=== PATIENT | female | born 2000 | race Caucasian/White ===

== ENCOUNTER 2021-08-14 11:02 | Inpatient (IN) | payer BC ==
[2021-08-20 05:39] VITALS: BMI 36.6
[2021-08-20] MEDS ORDERED: Lidocaine 1% (PF) 30 ML VIAL SC PRN (06:05)
[2021-08-20] MEDS ORDERED: Carboprost 250 MCG/ML AMP IM PRN (06:05)
[2021-08-20] MEDS ORDERED: hydrALAZINE 20 MG/ML VIAL SLOW IVP PRN (06:05)
[2021-08-20] MEDS ORDERED: Methylergonovine 0.2 MG/ML VIAL IM PRN (06:05)
[2021-08-20] MEDS ORDERED: Ondansetron PF 4 MG/2 ML Vial IVP PRN (06:05)
[2021-08-20] MEDS ORDERED: Misoprostol 200 MCG TAB PR PRN (06:05)
[2021-08-20] MEDS ORDERED: Penicillin G Potassium 5 MILL.UNITS in Sodium Chloride 0.9% 100 ML IVPB SCH (06:15)
[2021-08-20] MEDS ORDERED: NS w/ Oxytocin 30 units 500 ML IV SCH ×2 (06:15)
[2021-08-20 06:39] LABS: Hemoglobin 9.9 g/dL (12.0-15.5); Mean Corpuscular HGB CONC 30.1 g/dL (32.0-36.0); Mean Corpuscular Hemoglobin 25.1 pg (27.0-33.0); Mean Corpuscular Volume 83.3 fl (81.6-98.3); Mean Platelet Volume 11.4 fl (7.4-10.4); Platelet Count 211 10x3/uL (150-450); RBC Distribution Width 14.5 % (11.5-14.5); Red Blood Cell (RBC) Count 3.95 10x6/uL (3.90-5.03); White Blood Cell (WBC) Count 7.9 10x3/uL (3.5-10.5)
[2021-08-20] MEDS: Misoprostol 100 MCG TAB VAG SCH ×3 (07:20→21:43)
[2021-08-20 07:25] LABS: Hep B Surf Ag Non-Reactive S/CO (NonReactive)
[2021-08-20 07:26] LABS: HBSAg Index 0.18 S/CO (0-0.99); Syphilis Antibody Nonreactive (Nonreactive); Syphilis Antibody Index 0.04 S/CO (<1.00 Non-Reactive)
[2021-08-20] MEDS ORDERED: ePHEDrine Sulfate 50 MG/10 ML VIAL ONE (08:00)
[2021-08-20] MEDS ORDERED: Terbutaline Sulfate 1 MG/ML VIAL ONE (08:00)
[2021-08-20] MEDS ORDERED: Lidocaine 2% PF 5 ML VIAL ONE (08:00)
[2021-08-20] MEDS ORDERED: Bupivacaine 0.25% HCL 30 ML VIAL ONE (08:00)
[2021-08-20] MEDS: Penicillin G 2.5 MILL.units 2.5 MILL.UNITS in Premix Bag 1 BAG IVPB SCH ×4 (10:00→22:45)
[2021-08-20 10:01] LABS: SARS-CoV-2 NAA Rapid Test Not Detected (NotDetected)
[2021-08-20] MEDS ORDERED: Penicillin G Potassium 5 MILL.UNITS VIAL ONE (17:55)
[2021-08-20] MEDS: Lactated Ringer's 1,000 ML IV SCH ×2 (21:42→22:45)
[2021-08-21] MEDS: Misoprostol 100 MCG TAB VAG SCH ×2 (02:23→03:15)
[2021-08-21] MEDS: Lactated Ringer's 1,000 ML IV SCH ×4 (03:14→17:20)
[2021-08-21] MEDS: Penicillin G 2.5 MILL.units 2.5 MILL.UNITS in Premix Bag 1 BAG IVPB SCH ×4 (03:15→16:35)
[2021-08-21] MEDS ORDERED: Fentanyl 2 mcg/Bup 0.1% Cadd 100 ML ONE ×2 (06:57→13:51)
[2021-08-21] MEDS ORDERED: Naloxone HCl 0.4 mg/ml Vial IVP PRN ×4 (08:58→23:35)
[2021-08-21] MEDS ORDERED: Lactated Ringer's 500 ML IV PRN (08:58)
[2021-08-21] MEDS ORDERED: Ondansetron PF 4 MG/2 ML Vial IVP PRN ×2 (08:58→23:35)
[2021-08-21] MEDS ORDERED: diphenhydrAMINE 50 MG/ML VIAL IVP PRN ×2 (08:58→23:35)
[2021-08-21] MEDS ORDERED: Promethazine HCl 25 MG/ML VIAL IM PRN ×2 (08:58→23:35)
[2021-08-21] MEDS ORDERED: ePHEDrine Sulfate 50 MG/10 ML VIAL SLOW IVP PRN (08:58)
[2021-08-21] MEDS ORDERED: Hydrocerin (Eucerin) Cream 120 gm Jar TOP PRN ×2 (08:58→23:35)
[2021-08-21] MEDS ORDERED: Communication Order-Pharmacy FS SCH ×2 (09:00→23:45)
[2021-08-21] MEDS: Acetaminophen 325 MG TAB PO PRN (12:49)
[2021-08-21] MEDS: Fentanyl 2 mcg/Bupivacaine 0.1% Cassette 100 ML EPIDURAL SCH ×2 (13:55→18:53)
[2021-08-21] MEDS ORDERED: Lactated Ringer's 500 ML IV SCH (16:00)
[2021-08-21] MEDS ORDERED: ceFAZolin 2 GM/Dextrose 50 ML IVPB ONE (21:01)
[2021-08-21] MEDS ORDERED: Tranexamic Acid 1,000 MG/10 ML VIAL ONE (21:13)
[2021-08-21] MEDS ORDERED: Carboprost 250 MCG/ML AMP ONE (21:13)
[2021-08-21] MEDS ORDERED: Methylergonovine 0.2 MG/ML VIAL ONE (21:13)
[2021-08-21] MEDS ORDERED: Misoprostol 200 MCG TAB ONE (21:13)
[2021-08-21] MEDS ORDERED: Azithromycin 500 MG VIAL ONE (21:35)
[2021-08-21] MEDS ORDERED: Bicitra 30 ML UDCUP PO PRN (21:45)
[2021-08-21] MEDS ORDERED: Famotidine/PF 20 mg/2ml Vial SLOW IVP PRN (21:45)
[2021-08-21] MEDS ORDERED: ceFAZolin 2 GM/Dextrose 50 ML 2 GM in Premix Bag 1 BAG IVPB SCH (21:45)
[2021-08-21] MEDS ORDERED: Azithromycin 500 MG in Sodium Chloride 0.9% 250 ML 250 ML IVPB SCH (21:45)
[2021-08-21] MEDS ORDERED: Morphine PF 10 MG/10 ML VIAL ONE (22:19)
[2021-08-21] MEDS ORDERED: diphenhydrAMINE 50 MG/ML VIAL ONE ×2 (22:53→23:08)
[2021-08-21] MEDS ORDERED: Oxytocin 10 UNITS/ML VIAL ONE (23:07)
[2021-08-21] MEDS ORDERED: Dexamethasone 4 mg/ml Vial ONE (23:08)
[2021-08-21] MEDS ORDERED: Ondansetron PF 4 MG/2 ML Vial ONE (23:08)
[2021-08-21] MEDS ORDERED: Ketorolac Tromethamine 30 MG/ML VIAL ONE (23:16)
[2021-08-21] MEDS ORDERED: Lidocaine 2% MPF 10 ML AMP (For Epidural Use) ONE (23:16)
[2021-08-21] MEDS ORDERED: EPINEPHrine 1 MG/10 ML Abboject SYRINGE ONE (23:16)
[2021-08-21] MEDS ORDERED: Phenylephrine 40 MG/NS 250 ML 250 ML ONE (23:16)
[2021-08-21] MEDS ORDERED: Ondansetron HCl/PF 4 MG/2 ML Vial IVP PRN (23:35)
[2021-08-21] MEDS ORDERED: Meperidine HCl/PF 25 MG/ML VIAL SLOW IVP PRN (23:35)
[2021-08-21] MEDS ORDERED: Naloxone HCl 0.4 mg/ml Vial IV PRN (23:35)
[2021-08-21] MEDS ORDERED: Fentanyl 100 MCG/2 ML VIAL SLOW IVP PRN (23:35)
[2021-08-21] MEDS ORDERED: Ketorolac Tromethamine 30 MG/ML VIAL IVP PRN (23:35)
[2021-08-21] MEDS ORDERED: Promethazine HCl 25 MG SUPP PR PRN (23:35)
[2021-08-21] MEDS ORDERED: Ketorolac Tromethamine 30 MG/ML VIAL IVP SCH (23:45)
[2021-08-21] MEDS ORDERED: Acetaminophen 500 MG TAB PO SCH (23:45)
[2021-08-22] MEDS: GENTAMICIN IVPB SCH ×2 (00:43→10:53)
[2021-08-22] MEDS: SODIUM CHLORIDE IVPB SCH ×2 (00:43→10:53)
[2021-08-22] MEDS: ADMIXTURE FEE IVPB SCH ×2 (00:43→10:53)
[2021-08-22] MEDS ORDERED: Ondansetron PF 4 MG/2 ML Vial IVP PRN (04:04)
[2021-08-22] MEDS ORDERED: Lanolin Ointment 7 GM TUBE TOP PRN (04:04)
[2021-08-22] MEDS ORDERED: Misoprostol 200 MCG TAB PR PRN (04:04)
[2021-08-22] MEDS ORDERED: Acetaminophen 325 MG TAB PO PRN (04:04)
[2021-08-22] MEDS ORDERED: Boostrix 0.5 ML (Tdap) VIAL IM ONE (04:04)
[2021-08-22] MEDS ORDERED: hydrALAZINE 20 MG/ML VIAL SLOW IVP PRN (04:04)
[2021-08-22 06:20] LABS: Hemoglobin 8.7 g/dL (12.0-15.5); Mean Corpuscular HGB CONC 29.5 g/dL (32.0-36.0); Mean Corpuscular Hemoglobin 24.7 pg (27.0-33.0); Mean Corpuscular Volume 83.8 fl (81.6-98.3); Mean Platelet Volume 11.4 fl (7.4-10.4); Platelet Count 176 10x3/uL (150-450); RBC Distribution Width 14.7 % (11.5-14.5); Red Blood Cell (RBC) Count 3.52 10x6/uL (3.90-5.03); White Blood Cell (WBC) Count 14.6 10x3/uL (3.5-10.5)
[2021-08-22] MEDS: Ampicillin 2 GM in Sodium Chloride 0.9% 100 ML IVPB SCH ×4 (06:25→18:02)
[2021-08-22] MEDS ORDERED: Ferrous Sulfate 325 MG TAB PO SCH (10:00)
[2021-08-22] MEDS: Docusate 100 MG CAP PO SCH ×2 (10:04→21:07)
[2021-08-22] MEDS: Clindamycin 150 MG CAP PO SCH ×4 (10:05→21:00)
[2021-08-22] MEDS: Misoprostol 100 MCG TAB VAG SCH ×5 (10:49→20:09)
[2021-08-22] MEDS: Penicillin G 2.5 MILL.units 2.5 MILL.UNITS in Premix Bag 1 BAG IVPB SCH ×2 (10:51→10:52)
[2021-08-22 11:02] LABS: #Monocytes 0.8 10x3/uL (0.0-1.1); #Neutrophils 13.1 10x3/uL (1.5-8.4); %Basophils 0.1 % (0.0-2.0); %Lymphocytes 6.4 % (18.0-47.0); %Monocytes 5.1 % (0.0-10.0); %Neutrophils 87.9 % (40.0-75.0)
[2021-08-22 11:08] LABS: Hypochromia SLIGHT = 6-15 cells (100X) (0-5/hpf)
[2021-08-22 11:09] LABS: Platelet Morphology Comment Appears Adequate
[2021-08-22] MEDS: HYDROcodone/Acetaminophen 5/325 mg Tablet PO PRN ×2 (11:58→15:56)
[2021-08-22] MEDS: Acetaminophen 325 MG TAB PO PRN (15:57)
[2021-08-22] MEDS: Ibuprofen 800 MG TAB PO SCH (21:07)
[2021-08-22] MEDS: Ferrous Sulfate 325 MG TAB PO SCH (21:08)
[2021-08-23] MEDS: Misoprostol 100 MCG TAB VAG SCH ×9 (00:23→23:25)
[2021-08-23] MEDS: Clindamycin 150 MG CAP PO SCH (05:00)
[2021-08-23] MEDS: Ibuprofen 800 MG TAB PO SCH ×3 (05:27→21:07)
[2021-08-23 05:29] LABS: #Eosinphils 0.1 10x3/uL (0.0-0.5); #Monocytes 0.6 10x3/uL (0.0-1.1); #Neutrophils 6.8 10x3/uL (1.5-8.4); %Basophils 0.3 % (0.0-2.0); %Eosinophils 1.1 % (0.0-6.0); %Lymphocytes 17.8 % (18.0-47.0); %Monocytes 6.6 % (0.0-10.0); %Neutrophils 72.9 % (40.0-75.0); Mean Corpuscular HGB CONC 30.4 g/dL (32.0-36.0); Mean Corpuscular Hemoglobin 25.2 pg (27.0-33.0); Mean Platelet Volume 11.5 fl (7.4-10.4); Platelet Count 164 10x3/uL (150-450); Red Blood Cell (RBC) Count 3.17 10x6/uL (3.90-5.03); White Blood Cell (WBC) Count 9.3 10x3/uL (3.5-10.5)
[2021-08-23 05:46] LABS: ALT (SGPT) 12 U/L (8-55); AST (SGOT) 21 U/L (5-34); Albumin 2.5 g/dL (3.5-5.0); Alkaline Phosphatase 134 U/L (40-100); Anion Gap 12 mmol/L (10-20); BUN (Urea Nitrogen) 6 mg/dL (7.0-18.7); Bilirubin, Total 0.3 mg/dL (0.2-1.2); CRP (Inflammatory) 12.03 mg/dL (= or < 0.5); Calc. Creatinine Clearance 244 mL/min (70-130); Calcium 8.1 mg/dL (7.8-10.44); Carbon Dioxide 19 mmol/L (22-29); Chloride 111 mmol/L (98-107); Globulin 2.6 g/dL (2.4-3.5); Glucose 110 mg/dL (70-105); Protein, Total 5.1 g/dL (6.0-8.3); Sodium 138 mmol/L (136-145)
[2021-08-23] MEDS: Ferrous Sulfate 325 MG TAB PO SCH ×2 (10:40→21:07)
[2021-08-23] MEDS: Docusate 100 MG CAP PO SCH ×2 (10:40→21:08)
[2021-08-24] MEDS: Ibuprofen 800 MG TAB PO SCH ×2 (05:38→14:14)
[2021-08-24] MEDS: Misoprostol 100 MCG TAB VAG SCH (07:16)
[2021-08-24 08:55] VITALS: BP 125/79; TEMP 97.6
[2021-08-24] MEDS: Ferrous Sulfate 325 MG TAB PO SCH (09:41)
[2021-08-24] MEDS: Docusate 100 MG CAP PO SCH (09:41)
== END 2021-08-24 14:20 | disposition home or self-care (01) | DRG 787 ==
LOC: CSHLD 08-20 04:58 → CSHPP 08-22 03:10
PROVIDERS: ADMIT Family Medicine; ATTEND Family Medicine
PROC: 3E0P7VZ Introduction of Hormone into Female Reproductive, Via Natural or Artificial Opening (ICD-10-PCS; 2021-08-20)
PROC: 3E033VJ Introduction of Other Hormone into Peripheral Vein, Percutaneous Approach (ICD-10-PCS; 2021-08-20)
PROC: 10D00Z1 Extraction of Products of Conception, Low, Open Approach (ICD-10-PCS; principal; 2021-08-21)
PROC: 10907ZC Drainage of Amniotic Fluid, Therapeutic from Products of Conception, Via Natural or Artificial Opening (ICD-10-PCS; 2021-08-21)
DX: O48.0 Post-term pregnancy (principal); O86.4 Pyrexia of unknown origin following delivery; O72.1 Other immediate postpartum hemorrhage; Z37.0 Single live birth; Z20.822 Contact with and (suspected) exposure to COVID-19; O99.824 Streptococcus B carrier state complicating childbirth; O61.0 Failed medical induction of labor; O76 Abnormality in fetal heart rate and rhythm complicating labor and delivery; O77.0 Labor and delivery complicated by meconium in amniotic fluid; O32.4XX0 Maternal care for high head at term, not applicable or unspecified; O99.02 Anemia complicating childbirth; D64.9 Anemia, unspecified; Z79.899 Other long term (current) drug therapy; Z67.11 Type A blood, Rh negative; Z3A.40 40 weeks gestation of pregnancy
CPT/HCPCS: 36415; 80053; 85025; 85027; 86140; 86780; 86850; 86900; 86901; 87340; J0171; J0290; J1100; J1200; J1580; J1885; J2001; J2210; J2274; J2405; J2540; J2590; J3105; J3490; J7120; S0020; U0002

== ENCOUNTER 2021-08-15 09:01 | Outpatient (CLI) | payer BC ==
[2021-08-15 23:32] LABS: SARS-CoV-2 PCR by NAA Indeterminate (NotDetected)
== END 2021-08-15 09:02 | disposition home or self-care (01) ==
LOC: CSHLAB 09:01
PROVIDERS: ATTEND Family Medicine
DX: Z20.822 Contact with and (suspected) exposure to COVID-19 (principal)
CPT/HCPCS: U0003; U0005

== ENCOUNTER 2021-09-04 22:48 | Inpatient (IN) | payer BC ==
[2021-09-04] MEDS ORDERED: Ondansetron ODT 4 MG TAB PO PRN (23:42)
[2021-09-04] MEDS ORDERED: Acetaminophen 325 MG TAB PO PRN (23:42)
[2021-09-05] MEDS ORDERED: Lactated Ringer's 1,000 ML IV SCH (00:15)
[2021-09-05 01:28] VITALS: BMI 31.6
[2021-09-05] MEDS ORDERED: VANCOMYCIN 1.75 GM in Sodium Chloride 0.9% 500 ML IVPB SCH (02:00)
[2021-09-05] MEDS: Ibuprofen 600 MG TAB PO PRN (09:15)
[2021-09-05] MEDS ORDERED: VANCOMYCIN 1.25 GM in Sodium Chloride 0.9% 250 ML 250 ML IVPB SCH (10:00)
[2021-09-05] MEDS: VANCOMYCIN 1.25 GM in Sodium Chloride 0.9% 250 ML 250 ML IVPB SCH ×2 (11:38→20:32)
[2021-09-06] MEDS: VANCOMYCIN 1.25 GM in Sodium Chloride 0.9% 250 ML 250 ML IVPB SCH ×3 (04:36→20:34)
[2021-09-06] MEDS ORDERED: Polyethylene Glycol 3350 17 GM Packet PO PRN (07:02)
[2021-09-06 08:04] LABS: #Basophils 0.1 10x3/uL (0.0-0.2); #Eosinphils 0.9 10x3/uL (0.0-0.5); #Monocytes 0.4 10x3/uL (0.0-1.1); #Neutrophils 13.5 10x3/uL (1.5-8.4); %Basophils 0.5 % (0.0-2.0); %Eosinophils 4.9 % (0.0-6.0); %Lymphocytes 11.6 % (18.0-47.0); %Monocytes 2.5 % (0.0-10.0); %Neutrophils 76.3 % (40.0-75.0); Hemoglobin 7.6 g/dL (12.0-15.5); Mean Corpuscular HGB CONC 29.8 g/dL (32.0-36.0); Mean Corpuscular Hemoglobin 24.4 pg (27.0-33.0); Mean Platelet Volume 10.7 fl (7.4-10.4); Platelet Count 321 10x3/uL (150-450); RBC Distribution Width 15.4 % (11.5-14.5); Red Blood Cell (RBC) Count 3.11 10x6/uL (3.90-5.03); White Blood Cell (WBC) Count 17.7 10x3/uL (3.5-10.5)
[2021-09-06 08:37] LABS: ALT (SGPT) 19 U/L (8-55); AST (SGOT) 19 U/L (5-34); Albumin 2.8 g/dL (3.5-5.0); Alkaline Phosphatase 127 U/L (40-100); Anion Gap 17 mmol/L (10-20); BUN (Urea Nitrogen) 7 mg/dL (7.0-18.7); Bilirubin, Total 0.4 mg/dL (0.2-1.2); CRP (Inflammatory) 23.91 mg/dL (= or < 0.5); Calc. Creatinine Clearance 200 mL/min (70-130); Calcium 8.7 mg/dL (7.8-10.44); Carbon Dioxide 17 mmol/L (22-29); Chloride 112 mmol/L (98-107); Globulin 3.6 g/dL (2.4-3.5); Glucose 73 mg/dL (70-105); Potassium 4.1 mmol/L (3.5-5.1); Protein, Total 6.4 g/dL (6.0-8.3); Sodium 142 mmol/L (136-145)
[2021-09-06 09:19] LABS: Hypochromia SLIGHT = 6-15 cells (100X) (0-5/hpf); Platelet Morphology Comment Appears Adequate; Stomatocytes SLIGHT = 2-5 cells (100X) (0-1/hpf)
[2021-09-06] MEDS: Prenatal Vitamin 1 TAB PO SCH (09:21)
[2021-09-06] MEDS: Ibuprofen 600 MG TAB PO PRN (09:21)
[2021-09-07 04:32] LABS: Vancomycin, Trough 15.7 ug/mL
[2021-09-07] MEDS: VANCOMYCIN 1.25 GM in Sodium Chloride 0.9% 250 ML 250 ML IVPB SCH ×3 (04:56→21:06)
[2021-09-07 08:28] LABS: Hemoglobin 8.3 g/dL (12.0-15.5); Mean Corpuscular HGB CONC 29.7 g/dL (32.0-36.0); Mean Corpuscular Hemoglobin 24.3 pg (27.0-33.0); Mean Corpuscular Volume 81.6 fl (81.6-98.3); Mean Platelet Volume 10.2 fl (7.4-10.4); Platelet Count 325 10x3/uL (150-450); RBC Distribution Width 15.2 % (11.5-14.5); Red Blood Cell (RBC) Count 3.42 10x6/uL (3.90-5.03); White Blood Cell (WBC) Count 9.3 10x3/uL (3.5-10.5)
[2021-09-07 08:32] LABS: Anion Gap 16 mmol/L (10-20); BUN (Urea Nitrogen) 5 mg/dL (7.0-18.7); Calc. Creatinine Clearance 206 mL/min (70-130); Calcium 8.9 mg/dL (7.8-10.44); Carbon Dioxide 21 mmol/L (22-29); Chloride 110 mmol/L (98-107); Glucose 78 mg/dL (70-105); Potassium 3.9 mmol/L (3.5-5.1); Sodium 143 mmol/L (136-145)
[2021-09-07] MEDS ORDERED: HYDROcodone/Acetaminophen 5/325 mg Tablet PO PRN (08:41)
[2021-09-07] MEDS: Prenatal Vitamin 1 TAB PO SCH (09:28)
[2021-09-07 09:30] LABS: Eosinophils 8 % (0-10); Lymphocytes 20 % (28-48); MDiff Complete? YES; Metamyelocyte 4 % (0-0); Monocytes 5 % (0-4); Myelocyte 6 % (0-0); Neutrophil 56 % (31-61); Reactive Lymphocytes 1 % (0-10)
[2021-09-07 09:31] LABS: Hypochromia SLIGHT = 6-15 cells (100X) (0-5/hpf); Platelet Morphology Comment Appears Adequate; Reflex for Review?? YES; Stomatocytes SLIGHT = 2-5 cells (100X) (0-1/hpf)
[2021-09-07] MEDS: Ibuprofen 600 MG TAB PO SCH ×3 (09:32→21:17)
[2021-09-07] MEDS: Sulfameth/Trimethoprim DS 800-160mg TAB PO SCH ×2 (11:11→21:06)
[2021-09-07] MEDS ORDERED: Acetaminophen 325 MG TAB PO SCH (12:00)
[2021-09-07] MEDS: Acetaminophen 325 MG TAB PO SCH ×2 (13:12→19:04)
[2021-09-08] MEDS: Ibuprofen 600 MG TAB PO SCH ×3 (03:14→15:45)
[2021-09-08 03:53] LABS: Hemoglobin 8.4 g/dL (12.0-15.5); Mean Corpuscular HGB CONC 29.2 g/dL (32.0-36.0); Mean Corpuscular Hemoglobin 24.1 pg (27.0-33.0); Mean Corpuscular Volume 82.8 fl (81.6-98.3); Mean Platelet Volume 10.1 fl (7.4-10.4); Platelet Count 358 10x3/uL (150-450); Red Blood Cell (RBC) Count 3.48 10x6/uL (3.90-5.03); White Blood Cell (WBC) Count 8.2 10x3/uL (3.5-10.5)
[2021-09-08 04:06] LABS: Anion Gap 13 mmol/L (10-20); BUN (Urea Nitrogen) 7 mg/dL (7.0-18.7); CRP (Inflammatory) 8.23 mg/dL (= or < 0.5); Calc. Creatinine Clearance 188 mL/min (70-130); Calcium 8.5 mg/dL (7.8-10.44); Carbon Dioxide 25 mmol/L (22-29); Chloride 106 mmol/L (98-107); Glucose 77 mg/dL (70-105); Potassium 3.9 mmol/L (3.5-5.1); Sodium 140 mmol/L (136-145); Vancomycin, Trough 21.1 ug/mL
[2021-09-08 04:23] LABS: Manual Diff?? YES
[2021-09-08 04:24] LABS: MDiff Complete? YES
[2021-09-08] MEDS ORDERED: Vancomycin HCl 750 MG in Sodium Chloride 0.9% 250 ML 250 ML IVPB SCH ×2 (04:45→12:00)
[2021-09-08] MEDS: Acetaminophen 325 MG TAB PO SCH ×3 (05:10→12:14)
[2021-09-08 05:17] LABS: Band 7 % (5-11); Eosinophils 9 % (0-10); Lymphocytes 27 % (28-48); Metamyelocyte 3 % (0-0); Monocytes 1 % (0-4); Myelocyte 5 % (0-0); Neutrophil 42 % (31-61); Reactive Lymphocytes 3 % (0-10)
[2021-09-08 05:18] LABS: Giant Platelets SLIGHT; Platelet Morphology Comment Appears Adequate; Toxic Granulation MODERATE
[2021-09-08 05:20] LABS: Anisocytosis SLIGHT = 6-15 cells (100X) (0-5/hpf); Hypochromia SLIGHT = 6-15 cells (100X) (0-5/hpf); Macrocytosis SLIGHT = 6-15 cells (100X) (0-5/hpf); Microcytosis SLIGHT = 6-15 cells (100X) (0-5/hpf); Schistocytes SLIGHT = 2-5 cells (100X) (0-1/hpf); Vacuoles SLIGHT
[2021-09-08] MEDS: VANCOMYCIN 1.25 GM in Sodium Chloride 0.9% 250 ML 250 ML IVPB SCH (07:49)
[2021-09-08] MEDS: Sulfameth/Trimethoprim DS 800-160mg TAB PO SCH (09:03)
[2021-09-08] MEDS: Prenatal Vitamin 1 TAB PO SCH (09:04)
[2021-09-08] MEDS ORDERED: Sodium Chloride 0.9% 1,000 ML IV SCH (09:15)
[2021-09-08 12:26] VITALS: BP 118/69; TEMP 97.5
== END 2021-09-08 15:50 | disposition home or self-care (01) | DRG 776 ==
LOC: CSHPP 22:48
PROVIDERS: ADMIT Obstetrics & Gynecology; ATTEND Family Medicine
DX: O85 Puerperal sepsis (principal); O91.23 Nonpurulent mastitis associated with lactation
CPT/HCPCS: 36415; 71046; 80048; 80053; 80202; 85025; 85060; 86140; 94760; J3370; J7030; J7050; J7120